=== PATIENT | male | born 1950 | race Caucasian/White ===

== ENCOUNTER 2018-03-16 09:57 | Emergency (ER) | payer MEDICARE, MEDICAID ==
[~2018-03-16] VITALS: Ht 172.7 cm; Wt 65.3 kg
[2018-03-16 10:50] LABS: Urine Bacteria NONE SEEN /hpf (None Seen); Urine Blood Negative /uL (Negative); Urine Hyaline Cast FEW /lpf (0 - 2); Urine WBC 1 /hpf (0 - 3)
[2018-03-16 11:00] LABS: Basophils # (auto) 0.1 uL; Basophils % (auto) 0.7 % (0.0-2.0); Eosinophils # (auto) 0.1 uL; Eosinophils % (auto) 1.1 % (0.0-7.0); Hematocrit 32.5 % (41.0-53.0); Hemoglobin 10.9 g/dL (13.5-17.5); Lymphocytes # (auto) 3.5 uL; Lymphocytes % (auto) 33.7 % (10.0-50.0); Mean Corpuscular Hemoglobin 33.1 pg (28.0-32.0); Mean Corpuscular Hgb Conc. 33.6 g/dL (32.0-36.0); Mean Corpuscular Volume 98.4 fL (80.0-100.0); Monocytes # (auto) 0.9 uL; Monocytes % (auto) 8.9 % (0.0-12.0); Neutrophils # (auto) 5.7 uL; Neutrophils % (auto) 55.6 % (37.0-80.0); Nucleated Red Blood Cells % 0.1 %; Platelet Count (auto) 256 10^3/uL (140-450); Red Blood Cells 3.31 10^6/uL (4.5-5.90); Red Cell Distribution Width 18.9 % (11.8-14.3); White Blood Cell 10.3 10^3/uL (4.4-10.8)
[2018-03-16 11:14] LABS: Albumin 3.6 g/dL (3.4-5.0); Calcium 9.2 mg/dL (8.5-10.1); Potassium 4.5 mmol/L (3.5-5.1)
[2018-03-16 11:17] LABS: BUN/Creatinine Ratio 13.1; Bilirubin, Total 0.3 mg/dL (0.2-1.0); Total Protein 7.3 g/dL (6.4-8.2)
[2018-03-16 14:24] VITALS: BP 141/77
== END 2018-03-16 14:41 | disposition home or self-care (01) ==
LOC: ER 10:01
DX: H47.10 Unspecified papilledema (principal); B02.9 Zoster without complications; C78.00 Secondary malignant neoplasm of unspecified lung; F41.1 Generalized anxiety disorder
CPT/HCPCS: 36415; 80053; 81001; 85025

== ENCOUNTER 2018-04-25 18:51 | Emergency (ER) | payer MEDICARE, MEDICAID ==
[~2018-04-25] VITALS: Ht 170.2 cm; Wt 63.5 kg
[2018-04-25 22:11] VITALS: BP 144/87
[2018-04-25] MEDS ORDERED: LORazepam 0.5 MG TAB PO ONE (22:45)
== END 2018-04-25 22:59 | disposition home or self-care (01) ==
LOC: ER 18:52
DX: F41.9 Anxiety disorder, unspecified (principal); Z76.0 Encounter for issue of repeat prescription

== ENCOUNTER 2018-06-22 13:23 | Inpatient (IN) | payer MEDICARE, MEDICAID ==
[~2018-06-22] VITALS: Ht 170.2 cm; Wt 66.4 kg
[2018-06-22 16:43] LABS: Basophils # (auto) 0.1 uL; Eosinophils # (auto) 0 uL; Hemoglobin 11.7 g/dL (13.5-17.5); Mean Corpuscular Hgb Conc. 33.7 g/dL (32.0-36.0); Monocytes # (auto) 0.7 uL; Red Blood Cells 2.91 10^6/uL (4.5-5.90); White Blood Cell 11.7 10^3/uL (4.4-10.8)
[2018-06-22 16:48] LABS: Basophils % (auto) 0.6 % (0.0-2.0); Eosinophils % (auto) 0.2 % (0.0-7.0); Hematocrit 34.7 % (41.0-53.0); Lymphocytes # (auto) 1.5 uL; Lymphocytes % (auto) 12.9 % (10.0-50.0); Mean Corpuscular Hemoglobin 40.1 pg (28.0-32.0); Mean Corpuscular Volume 119.1 fL (80.0-100.0); Monocytes % (auto) 6.2 % (0.0-12.0); Neutrophils # (auto) 9.4 uL; Neutrophils % (auto) 80.1 % (37.0-80.0); Nucleated Red Blood Cells % 0.4 %; Platelet Count (auto) 248 10^3/uL (140-450); Red Cell Distribution Width 15.9 % (11.8-14.3)
[2018-06-22 16:57] LABS: Albumin 4.1 g/dL (3.4-5.0); Calcium 9.7 mg/dL (8.5-10.1); Potassium 3.8 mmol/L (3.5-5.1)
[2018-06-22 17:02] LABS: BUN/Creatinine Ratio 13.5; Bilirubin, Total 0.5 mg/dL (0.2-1.0); Total Protein 7.6 g/dL (6.4-8.2)
[2018-06-22 17:38] LABS: Urine Bacteria FEW /hpf (None Seen); Urine Blood Negative /uL (Negative); Urine Hyaline Cast FEW /lpf (0 - 2); Urine Mucus FEW (None Seen); Urine Specific Gravity 1.023 (1.001-1.035); Urine Sperm PRESENT /hpf (None Seen); Urine WBC 3 /hpf (0 - 3)
[2018-06-22] MEDS ORDERED: FLEET MINERAL OIL ENEMA 133 ML PR ONE (18:00)
[2018-06-22] MEDS ORDERED: FLEET ENEMA(ADULT) 135 ML PR ONE (18:45)
[2018-06-22] MEDS ORDERED: ACETAMINOPHEN 325 MG TAB PO PRN (20:45)
[2018-06-22] MEDS ORDERED: ONDANSETRON HCL 4 MG/2 ML VIAL IV PRN (20:45)
[2018-06-22] MEDS ORDERED: POLYETHYLENE GLYCOL 17 GM PWDR PO ONE (20:45)
[2018-06-22] MEDS ORDERED: SODIUM CHLORIDE 0.9% 500 ML IV ONE (20:45)
[2018-06-22] MEDS ORDERED: POLYETHYLENE GLYCOL 17 GM PWDR PO PRN (20:45)
--- NOTE | 2018-06-22 21:55 | NUR ---
RECEIVED PATIENT FROM ED VIA STRETCHER, AWAKE, ALERT, ORIENTED X4, AMBULATORY, SPEAKS CLEARLY. NO S/S OF RESPIRATORY DISTRESS, DENIES SOB AND CHEST PAIN. DENIES ABDOMINAL PAIN, NAUSEA AND VOMITING. WITH IV ON THE LEFT HAND GAUGE 20. SKIN IS INTACT. ORIENTED ON PLAN OF CARE. BED IS LOCKED AND IN LOWEST LEVEL, SIDE RAILS UP X2, PADDED, CALL LIGHT WITHIN REACH. WILL CONTINUE TO MONITOR
[2018-06-22 22:00] VITALS: BP 140/79
[2018-06-22] MEDS ORDERED: LEVETIRACETAM 500 MG TAB PO SCH (22:00)
[2018-06-22] MEDS: LEVETIRACETAM 500 MG TAB PO SCH (22:00)
--- NOTE | 2018-06-22 22:00 | NUR ---
PATIENT REFUSED NIGHT DOSE OF KEPPRA, FAMILY AND PATIENT SAID HE ALREADY TOOK THE MEDICATION AT 22:30 IN ED FROM HIS HOME MEDICATIONS
--- NOTE | 2018-06-22 22:30 | NUR ---
PATIENT HAD 2 LARGE BOWEL MOVEMENTS
[2018-06-22] MEDS: MORPHINE SULF 15mg ER tab PO SCH (22:43)
[2018-06-22] MEDS: FAMOTIDINE 20 MG TAB PO SCH (22:43)
[2018-06-22] MEDS: predniSONE 5 MG TAB PO SCH (22:43)
[2018-06-22] MEDS: DOCUSATE SOD 100 MG CAP PO SCH (22:43)
[2018-06-22 23:43] VITALS: BP 140/79
[2018-06-22] MEDS: SODIUM CHLORIDE 0.9% 1,000 ML IV SCH (23:59)
[2018-06-23] MEDS ORDERED: ONDA-143 PO (00:41)
[2018-06-23] MEDS ORDERED: MORP1TAB12 PO (00:41)
[2018-06-23] MEDS ORDERED: PAR20T PO (00:41)
[2018-06-23] MEDS ORDERED: MULT-908 OR (00:41)
[2018-06-23] MEDS ORDERED: PRE1T PO (00:41)
[2018-06-23] MEDS ORDERED: FOLI1TAB6 PO (00:41)
[2018-06-23] MEDS ORDERED: LEVE500T22 PO (00:41)
[2018-06-23] MEDS ORDERED: HYDR-531 PO (00:42)
[2018-06-23] MEDS ORDERED: LORA-654 PO (00:45)
[2018-06-23 05:05] VITALS: BP 108/67
[2018-06-23 06:51] LABS: Basophils # (auto) 0 uL; Basophils % (auto) 0.5 % (0.0-2.0); Eosinophils # (auto) 0.1 uL; Eosinophils % (auto) 0.9 % (0.0-7.0); Hemoglobin 9.7 g/dL (13.5-17.5); Lymphocytes # (auto) 1.8 uL; Lymphocytes % (auto) 26.5 % (10.0-50.0); Mean Corpuscular Hemoglobin 41.5 pg (28.0-32.0); Mean Corpuscular Hgb Conc. 34.8 g/dL (32.0-36.0); Mean Corpuscular Volume 119.2 fL (80.0-100.0); Monocytes # (auto) 0.6 uL; Monocytes % (auto) 8.5 % (0.0-12.0); Neutrophils # (auto) 4.3 uL; Neutrophils % (auto) 63.6 % (37.0-80.0); Nucleated Red Blood Cells % 0.1 %; Platelet Count (auto) 191 10^3/uL (140-450); Red Blood Cells 2.35 10^6/uL (4.5-5.90); Red Cell Distribution Width 15.8 % (11.8-14.3); White Blood Cell 6.8 10^3/uL (4.4-10.8)
[2018-06-23 06:59] LABS: BUN/Creatinine Ratio 16.8; Calcium 9.1 mg/dL (8.5-10.1); Potassium 4.3 mmol/L (3.5-5.1)
--- NOTE | 2018-06-23 07:19 | NUR ---
CARE ENDORSED TO AM SHIFT RN
[2018-06-23 09:01] VITALS: BP 113/70
[2018-06-23] MEDS: DOCUSATE SOD 100 MG CAP PO SCH ×2 (09:53→22:00)
[2018-06-23] MEDS: MORPHINE SULF 15mg ER tab PO SCH ×2 (09:53→22:06)
[2018-06-23] MEDS: ASPirin 81 mg TAB PO SCH (09:53)
[2018-06-23] MEDS: LEVETIRACETAM 500 MG TAB PO SCH ×2 (09:53→22:04)
[2018-06-23] MEDS: FOLIC ACID 1 MG TAB PO SCH (09:54)
[2018-06-23] MEDS: PARoxetine 20 MG TAB PO SCH (09:54)
[2018-06-23] MEDS: predniSONE 5 MG TAB PO SCH ×2 (09:54→22:05)
[2018-06-23] MEDS: FAMOTIDINE 20 MG TAB PO SCH ×2 (09:54→22:05)
[2018-06-23] MEDS: SODIUM CHLORIDE 0.9% 1,000 ML IV SCH ×2 (10:05→23:43)
--- NOTE | 2018-06-23 10:45 | NUR ---
Dr. Briceño at bedside.
--- NOTE | 2018-06-23 11:18 | NUR ---
Dr. Flor at bedside.
[2018-06-23 13:00] VITALS: BP 125/77
[2018-06-23 16:56] VITALS: BP 108/66
--- NOTE | 2018-06-23 19:30 | NUR ---
RECEIVED PATIENT LYING IN BED, AWAKE, ALERT, ORIENTED X4, WITH FAMILY AT BEDSIDE. NO S/S OF RESPIRATORY DISTRESS, DENIES SOB AND CHEST PAIN. DENIES ABDOMINAL PAIN, NAUSEA AND VOMITING. ORIENTED ON PLAN OF CARE. BED IS LOCKED AND IN LOWEST LEVEL, SIDE RAILS UP X2, PADDED, CALL LIGHT WITHIN REACH. WILL CONTINUE TO MONITOR
[2018-06-23] MEDS: HYDROcodone-ACET 5/325MG TAB PO PRN (20:49)
[2018-06-23 22:00] VITALS: BP 110/65
[2018-06-23] MEDS: ATORVASTATIN 20 MG TAB PO SCH (22:05)
[2018-06-23] MEDS: TEMAZEPAM 15 MG CAP PO PRN (22:10)
[2018-06-24 05:00] VITALS: BP 113/62
--- NOTE | 2018-06-24 07:08 | NUR ---
CARE ENDORSED TO AM SHIFT RN
--- NOTE | 2018-06-24 08:30 | NUR ---
Opening Shift Note Assumed care of patient, awake and alert, oriented x4 and verbally responsive. Respiratory even and unlabored. No S/S of distress/SOB or pain. Skin is warm and dry to touch. Continue NPO for stress test, patient tolerated well. Instructed on POC and to call for assist PRN, will continue to monitor for changes Q1hr and PRN.
[2018-06-24] MEDS ORDERED: ADENOSINE 54 MG in GIVE UN-DILUTED 0 ML IV STA (08:40)
[2018-06-24] MEDS: MORPHINE SULF 15mg ER tab PO SCH ×2 (09:41→21:20)
[2018-06-24] MEDS: ASPirin 81 mg TAB PO SCH (09:41)
[2018-06-24] MEDS: FAMOTIDINE 20 MG TAB PO SCH ×2 (09:41→21:21)
[2018-06-24] MEDS: DOCUSATE SOD 100 MG CAP PO SCH ×2 (09:42→21:21)
[2018-06-24] MEDS: PARoxetine 20 MG TAB PO SCH (09:42)
[2018-06-24] MEDS: LEVETIRACETAM 500 MG TAB PO SCH ×2 (09:42→21:19)
[2018-06-24] MEDS: FOLIC ACID 1 MG TAB PO SCH (09:42)
[2018-06-24] MEDS: predniSONE 5 MG TAB PO SCH ×2 (09:42→21:21)
[2018-06-24] MEDS ORDERED: diphenhdrAMINE HCL 50 MG/1 ML VL ONE (11:46)
[2018-06-24] MEDS ORDERED: methylPREDNISolone SOD SUCC 125 MG/2 ML VL ONE (11:46)
[2018-06-24] MEDS ORDERED: EPINEPHrine HCL 1 MG/1 ML AMP ONE (11:46)
[2018-06-24] MEDS: SODIUM CHLORIDE 0.9% 1,000 ML IV SCH (12:45)
[2018-06-24 13:00] VITALS: BP 120/66
--- NOTE | 2018-06-24 14:14 | NUR ---
Per Dr. Briceño , patient needs LHC on Wednesday and he will talk to patient.
--- NOTE | 2018-06-24 14:15 | NUR ---
Per Dr. Briceño Held d/c, patient needs C.
[2018-06-24 17:00] VITALS: BP 148/80
--- NOTE | 2018-06-24 19:15 | NUR ---
RECEIVED PATIENT LYING IN BED, AWAKE, ALERT, ORIENTED X4. NO S/S OF RESPIRATORY DISTRESS, DENIES SOB AND CHEST PAIN. ORIENTED ON PLAN OF CARE. BED IS LOCKED AND IN LOWEST LEVEL, SIDE RAILS UP X2, CALL LIGHT WITHIN REACH. WILL CONTINUE TO MONITOR
[2018-06-24] MEDS: ATORVASTATIN 20 MG TAB PO SCH (21:20)
[2018-06-24] MEDS: TEMAZEPAM 15 MG CAP PO PRN (21:43)
[2018-06-24 22:00] VITALS: BP 143/79
[2018-06-25] MEDS: SODIUM CHLORIDE 0.9% 1,000 ML IV SCH ×2 (00:20→14:24)
[2018-06-25 04:56] VITALS: BP 131/67
[2018-06-25] MEDS: HYDROcodone-ACET 5/325MG TAB PO PRN ×2 (06:40→20:24)
--- NOTE | 2018-06-25 08:15 | NUR ---
Opening Shift Note Assumed care of patient, awake and alert. No S/S of distress/SOB or pain. Instructed on POC and to call for assist PRN, will continue to monitor for changes Q1hr and PRN.
[2018-06-25 08:17] VITALS: BP 129/90
[2018-06-25] MEDS: ASPirin 81 mg TAB PO SCH (09:34)
[2018-06-25] MEDS: predniSONE 5 MG TAB PO SCH ×2 (09:35→22:10)
[2018-06-25] MEDS: PARoxetine 20 MG TAB PO SCH (09:35)
[2018-06-25] MEDS: FAMOTIDINE 20 MG TAB PO SCH ×2 (09:35→22:08)
[2018-06-25] MEDS: MORPHINE SULF 15mg ER tab PO SCH ×2 (09:35→22:09)
[2018-06-25] MEDS: FOLIC ACID 1 MG TAB PO SCH (09:35)
[2018-06-25] MEDS: LEVETIRACETAM 500 MG TAB PO SCH ×2 (09:35→22:08)
[2018-06-25] MEDS: DOCUSATE SOD 100 MG CAP PO SCH ×2 (09:37→22:10)
[2018-06-25 13:00] VITALS: BP 130/84
[2018-06-25 17:18] VITALS: BP 142/87
--- NOTE | 2018-06-25 19:25 | NUR ---
Opening Shift Note Received report from Rosie SRIVASTAVA. Assumed care of patient, awake and alert, family at bedside. No S/S of distress/SOB or pain. Instructed on POC and to call for assist PRN, will continue to monitor for changes Q1hr and PRN.
[2018-06-25 22:00] VITALS: BP 145/87
[2018-06-25] MEDS: ATORVASTATIN 20 MG TAB PO SCH (22:09)
[2018-06-25] MEDS: TEMAZEPAM 15 MG CAP PO PRN (22:35)
[2018-06-26 04:30] VITALS: BP 134/79
[2018-06-26 08:33] VITALS: BP 145/84
--- NOTE | 2018-06-26 09:00 | NUR ---
Opening Shift Note Assumed care of patient, awake and alert, oriented x4 and verbally responsive. Respiratory even and unlabored. No S/S of distress/SOB or pain. Skin is warm and dry to touch. Instructed on POC and to call for assist PRN, will continue to monitor for changes Q1hr and PRN.
[2018-06-26] MEDS: FAMOTIDINE 20 MG TAB PO SCH ×2 (09:48→21:51)
[2018-06-26] MEDS: PARoxetine 20 MG TAB PO SCH (09:48)
[2018-06-26] MEDS: ASPirin 81 mg TAB PO SCH (09:48)
[2018-06-26] MEDS: FOLIC ACID 1 MG TAB PO SCH (09:48)
[2018-06-26] MEDS: LEVETIRACETAM 500 MG TAB PO SCH ×2 (09:48→21:49)
[2018-06-26] MEDS: MORPHINE SULF 15mg ER tab PO SCH ×2 (09:49→21:50)
[2018-06-26] MEDS: predniSONE 5 MG TAB PO SCH ×2 (09:49→21:50)
[2018-06-26] MEDS: DOCUSATE SOD 100 MG CAP PO SCH ×2 (09:49→21:51)
[2018-06-26] MEDS: SODIUM CHLORIDE 0.9% 1,000 ML IV SCH (10:00)
[2018-06-26] MEDS ORDERED: HYDROcodone-ACET 5/325MG TAB PO PRN (11:45)
[2018-06-26 12:19] VITALS: BP 121/74
--- NOTE | 2018-06-26 15:13 | NUR ---
NUTRITION ASSESSMENT NOTES Please refer to link notes of nutrition screen form filed under the intervention section of the plan of care for further details. Est. Needs: 1950 kcal to 2300 kcal (30-35 kcal/kgBW), 65 gms to 91 gms pro (1.0-1.4 gms/kgBW d/t CA). Will continue to monitor pertinent labs and reassess nutrient need prn Thank you. Addendum: 06/26/18 at [address] Amended: Links added.
[2018-06-26 16:45] VITALS: BP 121/82
--- NOTE | 2018-06-26 19:20 | NUR ---
Opening Shift Note Received report from Rosie SRIVASTAVA. Assumed care of patient, awake and alert. No S/S of distress/SOB or pain. Instructed on POC and to call for assist PRN, will continue to monitor for changes Q1hr and PRN.
[2018-06-26] MEDS: ATORVASTATIN 20 MG TAB PO SCH (21:50)
[2018-06-26 22:00] VITALS: BP 142/63
--- NOTE | 2018-06-26 23:20 | NUR ---
IV removal IV site leaking. IV DC'd with clean sterile technique, catheter fully intact. Pressure dressing applied to site. Patient tolerated well.
--- NOTE | 2018-06-26 23:35 | NUR ---
IV insertion IV access obtained, via clean sterile technique by inserting 22 gauge catheter at R forearm after 1 attempt. IV secured properly. No trauma to site. Patient tolerated well.
[2018-06-26] MEDS: TEMAZEPAM 15 MG CAP PO PRN (23:39)
--- NOTE | 2018-06-26 23:55 | NUR ---
Instructed patient nothing by mouth after midnight for LHC tomorrow, patient verbalized understanding.
[2018-06-27 05:00] VITALS: BP 130/70
[2018-06-27] MEDS: SODIUM CHLORIDE 0.9% 1,000 ML IV SCH (06:00)
[2018-06-27 06:30] LABS: Basophils # (auto) 0 uL; Eosinophils # (auto) 0.2 uL; Eosinophils % (auto) 1.7 % (0.0-7.0); Hemoglobin 10.2 g/dL (13.5-17.5); Monocytes # (auto) 0.8 uL; Neutrophils # (auto) 6.2 uL; Red Blood Cells 2.49 10^6/uL (4.5-5.90); White Blood Cell 9.3 10^3/uL (4.4-10.8)
[2018-06-27 06:33] LABS: Basophils % (auto) 0.2 % (0.0-2.0); Hematocrit 29.9 % (41.0-53.0); Lymphocytes % (auto) 21.9 % (10.0-50.0); Mean Corpuscular Hemoglobin 41.1 pg (28.0-32.0); Mean Corpuscular Hgb Conc. 34.2 g/dL (32.0-36.0); Mean Corpuscular Volume 119.9 fL (80.0-100.0); Neutrophils % (auto) 67.2 % (37.0-80.0); Platelet Count (auto) 200 10^3/uL (140-450); Red Cell Distribution Width 15.6 % (11.8-14.3)
[2018-06-27 06:42] LABS: INR 0.96 (0.9-1.15); Partial Thromboplastin Time 24.4 sec (23.78-33.04); Prothrombin Time 10.3 sec (9.27-12.13)
[2018-06-27 06:48] LABS: Calcium 8.4 mg/dL (8.5-10.1); Magnesium 2.1 mg/dL (1.6-2.6); Potassium 4.4 mmol/L (3.5-5.1)
[2018-06-27 06:50] LABS: BUN/Creatinine Ratio 16.5
[2018-06-27 08:00] VITALS: BP 127/83
[2018-06-27 08:46] VITALS: BP 127/83
[2018-06-27] MEDS: LEVETIRACETAM 500 MG TAB PO SCH ×2 (09:42→21:55)
[2018-06-27] MEDS: ASPirin 81 mg TAB PO SCH (09:43)
[2018-06-27] MEDS: PARoxetine 20 MG TAB PO SCH (09:44)
[2018-06-27] MEDS: DOCUSATE SOD 100 MG CAP PO SCH ×2 (09:44→21:55)
[2018-06-27] MEDS: MORPHINE SULF 15mg ER tab PO SCH ×2 (09:44→21:56)
[2018-06-27] MEDS: FOLIC ACID 1 MG TAB PO SCH (09:44)
[2018-06-27] MEDS: predniSONE 5 MG TAB PO SCH ×2 (09:44→21:54)
[2018-06-27] MEDS: FAMOTIDINE 20 MG TAB PO SCH ×2 (09:45→21:56)
--- NOTE | 2018-06-27 10:30 | NUR ---
patient left for left heart cath at the slab installer
[2018-06-27] MEDS ORDERED: IOHEXOL 350 MG/ML 100ML IJ ONE ×2 (11:15→11:49)
[2018-06-27] MEDS ORDERED: LIDOCAINE 2%HCL (LOCAL ANESTH.) INJ 20ML MDV ONE (11:15)
[2018-06-27] MEDS ORDERED: SODIUM CHL 0.9% 0 ML ONE (11:34)
[2018-06-27] MEDS ORDERED: ANGIOMAX 250 MG VIAL IV ONE (11:34)
[2018-06-27] MEDS ORDERED: MIDAZOLAM HCL 1MG/1ML-2 ML VIAL ONE (11:34)
[2018-06-27] MEDS ORDERED: fentaNYL CITRATE 100 MCG/2 ML VL ONE (11:34)
--- NOTE | 2018-06-27 13:40 | NUR ---
PATIENT RETURNED FROM [facility]
--- NOTE | 2018-06-27 14:00 | NUR ---
ROUNDED ON PATIENT AT 1400. DRESSING DRY AND INTACT. AREA AROUND DRESSING SOFT WITH NO SIGNS OF HEMATOMA OR BRUISING. PATIENT STATES NO PAIN AND INFORMS ME THAT I SHOULD TAKE A LUNCH WHILE HE RESTS.
--- NOTE | 2018-06-27 16:00 | NUR ---
RESPONDED TO PATIENT CALL LIGHT. PATIENT IS SUDDENLY IRATE AND CONFRONTATIONAL SAYING THAT HE DIDN'T GET HIS MORNING MEDICATIONS WHILE HE WAS AT HIS PROCEDURE. I INFORMED HIM THAT IT IS PROTOCOL TO HOLD NONESSENTIAL PAIN MEDICATIONS UNTIL THE NEXT SCHEDULED ADMINISTRATION BUT THAT I WOULD TRY TO GET THEM RESCHEDULED IF HE LIKED. PATIENT BECAME EVEN MORE IRATE AND CONFRONTATIONAL DEMANDING TO SPEAK WITH THE CHARGE NURSE. I INFORMED HIM THAT I WOULD GET THE CHARGE NURSE FOR HIM AND THAT I WOULD CONTINUE TO ATTEMPT TO GET HIM THE MEDICATIONS HE REQUESTED. THE PATIENT THREATENED POINTING HIS FINGER AND SHAKING HIS HAND AT ME WHILE HE CALLED ME AN IDIOT IN AN ATTEMPT TO INTIMIDATE ME.
--- NOTE | 2018-06-27 16:20 | NUR ---
I ATTEMPTED TO INFORM THE PATIENT THAT I HAD BEEN UNABLE TO LOCATE THE CHARGE NURSE AND I ASSURED HIM THAT I WOULD CONTINUE TO ATTEMPT TO LOCATE HER FOR HIM. I ALSO INFORMED HIM THAT I HAD SPOKEN WITH PHARMACY ABOUT RESCHEDULING HIS MEDICATIONS. THE PATIENT RESPONDED WITH CONTINUED PROFANITY AND THREATS AND DEMANDED THAT I NEVER COME BACK TO HIS ROOM. HE ALSO DEMANDED TO TALK TO THE ACCOUNTING ADMINISTRATIVE ASSISTANT . I LEFT THE ROOM AND CONTINUED TO ATTEMPT TO LOCATE THE CHARGE NURSE.
--- NOTE | 2018-06-27 16:30 | NUR ---
LOCATED THE CHARGE NURSE. SHE ATTEMPTED TO TALK TO THE PATIENT. THE PATIENT RESPONDED WITH THREATS AND AGGRESSION TOWARDS THE CHARGE NURSE
[2018-06-27 16:34] VITALS: BP 133/72
[2018-06-27] MEDS ORDERED: MORPHINE SULF 15mg ER tab PO ONE (17:00)
[2018-06-27] MEDS ORDERED: HYDROcodone-ACET 5/325MG TAB PO ONE (18:00)
[2018-06-27] MEDS: ATORVASTATIN 20 MG TAB PO SCH (21:55)
[2018-06-27 22:00] VITALS: BP 126/78
[2018-06-28] MEDS: SODIUM CHLORIDE 0.9% 1,000 ML IV SCH (02:14)
[2018-06-28 05:35] VITALS: BP 115/76
--- NOTE | 2018-06-28 07:45 | NUR ---
Opening Shift Note Assumed care of patient, patient sleeping. No S/S of distress/SOB or pain. Will continue to monitor for changes Q1hr and PRN. Bed in lowest locked position, call light within reach.
[2018-06-28 08:30] VITALS: BP 129/71
[2018-06-28] MEDS: LEVETIRACETAM 500 MG TAB PO SCH (09:30)
[2018-06-28] MEDS: FOLIC ACID 1 MG TAB PO SCH (09:30)
[2018-06-28] MEDS: DOCUSATE SOD 100 MG CAP PO SCH (09:30)
[2018-06-28] MEDS: PARoxetine 20 MG TAB PO SCH (09:30)
[2018-06-28] MEDS: FAMOTIDINE 20 MG TAB PO SCH (09:31)
[2018-06-28] MEDS: MORPHINE SULF 15mg ER tab PO SCH (09:31)
[2018-06-28] MEDS: ASPirin 81 mg TAB PO SCH (09:32)
[2018-06-28] MEDS: predniSONE 5 MG TAB PO SCH (09:32)
[2018-06-28 11:56] VITALS: BP 129/71
--- NOTE | 2018-06-28 12:36 | NUR ---
DISCHARGE Discharge instructions given as ordered. Encourage to follow up with PMD as instructed. All questions and concerns addressed. Patient verbalized understanding. Medication reconciliation form completed and copy given to patient. IV removed with catheter intact, pressure dressing applied. Patient taken to vehicle via wheelchair with all personal belongings, accompanied by staff and family member. No distress noted at time of departure.
== END 2018-06-28 12:30 | disposition home or self-care (01) | DRG 287 ==
LOC: EDBD 13:23 → ER 13:23 → EDUNIT# 13:23 → OVERFLOW 20:43 → CENTRAL 22:17
PROVIDERS: ADMIT Nurse Practitioner; ATTEND Internal Medicine
PROC: 4A023N7 Measurement of Cardiac Sampling and Pressure, Left Heart, Percutaneous Approach (ICD-10-PCS; principal; 2018-06-27)
PROC: B2111ZZ Fluoroscopy of Multiple Coronary Arteries using Low Osmolar Contrast (ICD-10-PCS; 2018-06-27)
PROC: B2151ZZ Fluoroscopy of Left Heart using Low Osmolar Contrast (ICD-10-PCS; 2018-06-27)
DX: I25.10 Atherosclerotic heart disease of native coronary artery without angina pectoris (principal); C79.31 Secondary malignant neoplasm of brain; C34.90 Malignant neoplasm of unspecified part of unspecified bronchus or lung; K57.30 Diverticulosis of large intestine without perforation or abscess without bleeding; I70.8 Atherosclerosis of other arteries; G40.909 Epilepsy, unspecified, not intractable, without status epilepticus; K56.41 Fecal impaction
CPT/HCPCS: 36415; 71045; 74176; 78452; 80048; 80053; 81001; 83735; 84484; 85025; 85610; 85730; 93005; 93017; 93306; 94761; 96360; 99152; A6257; G0378; J0153; J0171; J2250; J2405

== ENCOUNTER 2018-07-13 17:25 | Emergency (ER) | payer MEDICARE, MEDICAID ==
[~2018-07-13] VITALS: Ht 170.2 cm; Wt 63.0 kg
[~2018-07-13 17:25] MED LIST: FOLI1TAB6 PO; HYDR-531 PO; LEVE500T22 PO; LORA-654 PO; MORP1TAB12 PO; MULT-908 OR; ONDA-143 PO; PAR20T PO; PRE1T PO
[2018-07-13 17:30] VITALS: BP 140/78
[2018-07-13 18:22] LABS: Basophils # (auto) 0.1 uL; Eosinophils # (auto) 0.1 uL; Eosinophils % (auto) 0.9 % (0.0-7.0); Lymphocytes # (auto) 2.2 uL; Mean Corpuscular Volume 116.1 fL (80.0-100.0); Monocytes # (auto) 0.6 uL; Neutrophils # (auto) 4.5 uL; White Blood Cell 7.4 10^3/uL (4.4-10.8)
[2018-07-13 18:23] LABS: Basophils % (auto) 1.6 % (0.0-2.0); Hematocrit 37.2 % (41.0-53.0); Hemoglobin 12.9 g/dL (13.5-17.5); Lymphocytes % (auto) 29.5 % (10.0-50.0); Mean Corpuscular Hemoglobin 40.3 pg (28.0-32.0); Mean Corpuscular Hgb Conc. 34.7 g/dL (32.0-36.0); Monocytes % (auto) 7.4 % (0.0-12.0); Neutrophils % (auto) 60.6 % (37.0-80.0); Nucleated Red Blood Cells % 0.1 %; Platelet Count (auto) 236 10^3/uL (140-450); Red Cell Distribution Width 14.2 % (11.8-14.3)
[2018-07-13 18:47] LABS: Albumin 3.6 g/dL (3.4-5.0); BUN/Creatinine Ratio 10.9; Calcium 9.6 mg/dL (8.5-10.1); Potassium 4.3 mmol/L (3.5-5.1)
[2018-07-13 18:51] LABS: Bilirubin, Total 0.3 mg/dL (0.2-1.0); Total Protein 7.7 g/dL (6.4-8.2)
[2018-07-15] MEDS ORDERED: PRO10T PO (23:55)
[2018-07-15] MEDS ORDERED: DEXA4TAB PO (23:55)
== END 2018-07-14 01:54 | disposition left against medical advice (07) ==
LOC: ER 17:34
DX: R51 Headache (principal); R53.1 Weakness; Z53.21 Procedure and treatment not carried out due to patient leaving prior to being seen by health care provider
CPT/HCPCS: 36415; 70450; 71045; 80053; 82962; 84484; 85025; 93005